=== PATIENT | male | born 1955 | race Caucasian/White ===

== ENCOUNTER → 2017-03-13 | Outpatient (CLI) | payer OTHER ==
[~2017-03-13] MED LIST: ACETAMINOPHEN PEG; ACETAMINOPHEN325 MG GT; ALBUTEROL MININEB NEB; ALBUTEROL0.83 MG/ML IH; ANTACID650 MG GT; ANTACID650 MG PEG; ASPIRIN81 M1 PEG; ASPIRIN81 MG; AURALGAN EAR DR14 ML AS; BACLOFEN10 MG GT; BACLOFEN10 MG PEG; BACLOFEN10 MG PO; BAYER CHEWABLE81 MG GT; BISACODYL10 MG/SUPP; BISACODYL10 MG/SUPP PR; CARAFATE; CARAFATE GT; CARAFATE PO; CARAFATE1 G GT; CARAFATE1 G PEG; CENTRUM MU9 MG/15 ML GT; CENTRUM MU9 MG/15 ML PEG; CERTAGEN PO; CERTAVITE W/LUT1 TA1 PEG; COUMADIN; DESITIN DIAPER113 GM TOP; DIASTAT ACUDIAL1 KIT PR; DIASTAT10 MG PR; DOCUSATE LIQUID; DULCOLAX10 MG/SUPP RC; ERYTHROMYCIN O3.5 GM OD; ESOMEPRAZOLE PEG; FAST RELIEF LAX10 MG RC; FIBER STAT; FLEET ENEMA133 M1 PR; FLONASE ALLERG9.9 ML; FLUNISOLIDE25 ML; FLUNISOLIDE25 ML NS; GENASYME GT; GENTLE LAXATIVE10 MG PR; HYDROCORTISONE30 G2 EXT; KEPPRA100 MG/ML PEG; KEPPRA1000 MG; KEPPRA1000 MG GT; KEPPRA1000 MG PEG; KEPPRA250 MG PO; KEPPRA500 M1 GT; KEPPRA500 M2 PEG; KEPPRA500 MG GT; KEPPRA750 MG; KEPPRA750 MG PO; LACTULOSE10 G/15 M1 GT; LACTULOSE10 G/15 M1 PEG; LACTULOSE10 G/15 M3 GT; LIORESAL10 MG GT; LOPRESSOR GT; LOPRESSOR PEG; METOCLOPRAMI10 MG/ML GT; METOPROLOL SUCC25 MG GT; METOPROLOL TAR25 MG PEG; METOPROLOL TART25 MG GT; MIACALCIN4 ML; MIRALAX17 G2 GT; MIRALAX17 GM; MIRALAX17 GM GT; MIRALAX17 GM PEG; MONTELUKAST SOD10 MG GT; MULTI-VITAMIN1 TAB; MY FAVORITE MU237 ML GT; MYLICON40 MG/0.1 PEG; MYLICON40 MG/0.6 PEG; NASAL SPRAY30 M1; NEXIUM GT; NEXIUM20 MG/PACK; NEXIUM20 MG/PACK GT; NEXIUM20 MG/PACK PEG; NEXIUM20 MG/PACK PO; OCEAN NASAL SPRAY; OCEAN45 ML; OS-CAL 500 + D500 MG PEG; OSCAL GT; OSMOLITE 1.5; OYSTER CALCIUM500 MG; OYSTER CALCIUM500 MG PO; OYSTER SHELL 501 TAB PEG; OYSTER SHELL C1 EACH GT; OYSTER SHELL CA1 TA5 PEG; OYSTER SHELL W GT; OYSTER SHELL W PO; PAIN & FEVER325 MG GT; PEG 3350-GRX250 GM GT; PHENOBARB; PHENOBARB GT; PHENOBARB PO; PHENOBARBITAL97.2 MG; PHENOBARBITAL97.2 MG GT; PHENOBARBITAL97.2 MG PEG; POLYETHYLENE G527 GM GT; POLYETHYLENE PEG; PREVACID; PREVACID PO; PRILOSEC20 M1 PEG; PRILOSEC20 MG PEG; PROBIOTIC COMP1 EACH PEG; PROBIOTIC1 EACH PEG; PROVENTIL0.83 MG/ML NEB; PULMICORT0.5 MG/2 M NEB; PULMICORT0.5 MG/21 NEB; REGLAN; SENNA CONCENTR8.6 MG GT; SENNA PEG; SENNA-LAX8.6 M1 PEG; SINGULAIR; SINGULAIR GT; SINGULAIR PEG; SINGULAIR PO; SOD BICARBONATE GT; SODIUM BICARBO650 MG; SODIUM BICARBO650 MG GT; SODIUM BICARBO650 MG PEG; THERAGRAN-M AD1 EACH PEG; TOPAMAX; TOPAMAX GT; TOPAMAX PEG; TOPAMAX PO; TOPAMAX200 MG; TOPAMAX200 MG GT; TOPAMAX200 MG PEG; TOPIRAMATE200 M1 GT; TOPROL XL PO; TYLENOL325 M1 PEG; TYLENOL325 M1 PO; TYLENOL325 MG/10. PEG; VASOLEX OINTMEN30 GM TP; VIMPAT100 MG GT; VIMPAT100 MG PEG; VIMPAT200 MG GT; VIMPAT200 MG PEG; VIMPAT200 MG PO; VITAL-D RX TABL1 TAB PEG; VITAMIN D-40400 UNIT GT; VITAMIN D400 UNI1 GT; VITAMIN D400 UNI1 PEG; VITAMIN D400 UNI2 PO; WATER; XOPENEX1.25 MG/3 NEB; ZELNORM; ZINC SULFATE; ZZ-IMMUNOTHERAPY; [UNRECOGNIZED DRUG - OTHER]; [UNRECOGNIZED DRUG - OTHER]; [UNRECOGNIZED DRUG - OTHER] GT; [UNRECOGNIZED DRUG - OTHER] TP
--- NOTE | ~2017-03-13 | XA176 ---
[facility] A Service of [facility] & [facility] RADIOLOGY TEXT RESULTS PATIENT: ERIKA WOODS LOCATION: CIVR : 55 UNIT #: [id number] AGE: [address]: Marcelo Patel MD SEX: M ORDER DR: [id number] [facility]. [place], [place] [address] [id number] O MR#: [id number] Acc #: [id number] NAME: ERIKA WOODS : 1955 SEX: M STUDY DATE/TIME: 03/13/2017 8:36 UNIT: CIVR ROOM: STUDY DESCRIPTION: XA Perc G-Tube to GJ-Tube Conv Attending Physician: Marcelo Patel Sr., M.D. Ordering Physician: Marcelo Patel Sr., M.D. Primary Care Physician: Marcelo Patel Sr., M.D. MEDICAL IMAGING REPORT This report is preliminary unless electronic signature is present EXAM Attempted gastrojejunostomy tube replacement INDICATION This patient is a 61-year-old Desiree patient with a history of gastrojejunostomy tube. Apparently his prior gastrojejunostomy tube had become dislodged. He was taken to another facility where a gastrostomy tube only was placed. Conversion to gastrojejunostomy tube is requested. PROCEDURE The risks, benefits, and alternatives to procedure were explained to the patient's power of front office administrator and signed, informed consent was obtained. He was placed supine on the angiographic table. He was prepped and draped in the usual sterile fashion. Time-out was performed as per protocol. Contrast was injected through the preexisting G-tube which confirmed location within the stomach. I advanced a C2 catheter and a Stiff Glidewire through the preexisting catheter and attempted to manipulate the Glidewire and catheter into the small bowel. Initially I thought I saw some opacification of small bowel loops. Subsequently I advanced the catheter over the wire, however when I injected contrast, this demonstrated the catheter was actually located with both lumens within the stomach. At this point the procedure was terminated. Both lumens were left in place within the stomach. This tube will require endoscopic replacement. Total fluoroscopy time was 3.6 minutes and a total of 12 fluoroscopic images were obtained. The patient received 1 mg of Versed and 50 mcg of Fentanyl and a total of 30 minutes of continuous monitoring was provided by the IVR nurses. IMPRESSION Unsuccessful gastrostomy to gastrojejunostomy tube replacement. This tube will require endoscopic replacement. Fluoroscopy was used during this procedure and permanent images were saved. [facility] A Service of [facility] RADIOLOGY TEXT RESULTS PATIENT: ERIKA WOODS [id number] UNIT #: [id number] AGE: [address]: Marcelo Patel MD SEX: M ORDER DR: Dictated by... Светлана Mckeon M.D. THIS IS AN ELECTRONICALLY VERIFIED REPORT Светлана Mckeon M.D. at 03/14/2017 12:56 PM JOSE DANIEL/martha TD: 03/14/2017 09:25 JOB #: [id number] MEDICAL IMAGING REPORT Page 1 of 1 COPY
[2017-03-13 08:11] LABS: BASOPHIL# 0.1 X10e3 (0-0.3); BASOPHIL% 0.9 % (0-2.5); EOSINOPHIL# 0.4 X10e3 (0-0.7); EOSINOPHIL% 6.4 % (0.0-7.0); HEMATOCRIT 39.7 % (38.0-50.0); HEMOGLOBIN 13.1 gm/dL (13.0-16.0); LYMPHOCYTE# 2.4 X10e3 (1.0-3.5); LYMPHOCYTE% 40.1 % (17.0-45.0); MEAN CELL VOLUME 104.8 FL (83-96); MEAN CORPUSCULAR HEMOGLOBIN 34.6 PG (28-34); MEAN PLATELET VOLUME 8.4 FL (6.5-11.5); MONOCYTE# 0.4 X10e3 (0-1.0); MONOCYTE% 7.5 % (3.0-12.0); NEUTROPHIL# 2.7 X10e3 (1.5-7.1); NEUTROPHIL% 45.1 % (40-75); PLATELET COUNT 192 X10e3 (140-420); RED BLOOD COUNT 3.79 X10e (3.90-5.60); RED CELL DISTRIBUTION WIDTH 12.8 % (11.0-15.5)
[2017-03-13 08:12] LABS: DIFF IND NO
== END | disposition home or self-care (01) ==
LOC: CIVR 06:19
PROVIDERS: Internal Medicine
DX: Z43.1 Encounter for attention to gastrostomy (principal); F73 Profound intellectual disabilities; P11.1 Other specified brain damage due to birth injury; R13.10 Dysphagia, unspecified; G24.01 Drug induced subacute dyskinesia
CPT/HCPCS: 85025; C1769; C1887; J2250; J3010

== ENCOUNTER → 2017-04-03 | Outpatient (CLI) | payer OTHER | END | disposition home or self-care (01) | LOC: CSSDAY 08:56 | DX: M81.0 Age-related osteoporosis without current pathological fracture (principal) | CPT/HCPCS: 96372; J0897 ==

== ENCOUNTER → 2017-07-14 | Outpatient (CLI) | payer OTHER ==
--- NOTE | ~2017-07-14 | US77 ---
[facility] A Service of [facility] & [facility] RADIOLOGY TEXT RESULTS PATIENT: ERIKA WOODS LOCATION: [facility] : 55 UNIT #: [id number] AGE: [address]: Marcelo Patel MD SEX: M ORDER DR: [id number] [facility] [address] [facility]. [place], [place] [address] [id number] O MR#: [id number] Acc #: [id number] NAME: ERIKA WOODS : 1955 SEX: M STUDY DATE/TIME: 07/14/2017 13:19 UNIT: [facility] ROOM: STUDY DESCRIPTION: US Kidney Bilateral Complete Attending Physician: Marcelo Patel Sr., M.D. Referring Physician: Marcelo Patel Sr., M.D. Ordering Physician: Marcelo Patel Sr., M.D. Primary Care Physician: Marcelo Patel Sr., M.D. MEDICAL IMAGING REPORT This report is preliminary unless electronic signature is present EXAM Kidney ultrasound. INDICATIONS Abnormal creatinine. Patient is a Desiree patient. Has a history of renal stones. TECHNIQUE Mcelroy-scale and color Doppler sonographic images were obtained through the kidneys and bladder. FINDINGS No hydronephrosis is identified on either side. No definite urinary calculi are seen. No solid or cystic renal masses are identified and no bladder stones are identified. IMPRESSION Negative. Dictated by... Светлана Mckeon M.D. THIS IS AN ELECTRONICALLY VERIFIED REPORT Светлана Mckeon M.D. at 07/17/2017 4:54 PM JOSE DANIEL/nnamdi TD: 07/14/2017 21:00 JOB #: [id number] MEDICAL IMAGING REPORT Page 1 of 1 COPY
--- NOTE | ~2017-07-14 | EKG ---
PATIENT: ERIKA WOODS UNIT #: [id number] Ventricular Rate: 70 BPM Atrial Rate: 70 BPM P-R Interval: 124 ms QRS Duration: 94 ms Q-T Interval: 402 ms QTC Calculation(Bezet): 434 ms P [place]: 39 degrees Calculated R [place]: -35 degrees Calculated T [place]: 39 degrees Diagnosis Line: Normal sinus rhythm Diagnosis Line: Left axis deviation Diagnosis Line: Low voltage QRS Diagnosis Line: Abnormal ECG Diagnosis Line: When compared with ECG of 18-MAR-2016 06:12, Diagnosis Line: Previous ECG has undetermined rhythm, needs review Diagnosis Line: Confirmed by HARRIS PEREZ MD ([id number]) on 07/14/2017 Diagnosis Line: 5:04:06 PM INTERPRETING MD: ANA SUN
== END | disposition home or self-care (01) ==
LOC: CGUS 12:37
DX: Z51.81 Encounter for therapeutic drug level monitoring (principal); Z79.899 Other long term (current) drug therapy
CPT/HCPCS: 76770; 93005